=== PATIENT | male | born 1970 | race Caucasian/White ===

== ENCOUNTER 2018-05-14 11:06 | Emergency (ER) | payer OTHER ==
[~2018-05-14] VITALS: Ht 177.8 cm; Wt 99.8 kg
[2018-05-14 12:00] VITALS: BP 125/82
--- NOTE | 2018-05-14 12:21 | PHYS DOC ---
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 He had work boots on. Review of Systems Review of Systems Constitutional: Denies fever or chills [] Musculoskeletal: Denies back pain or joint pain [] Integument: Left lateral foot laceration Neurologic: Denies headache, focal weakness or sensory changes [] All other systems were reviewed and found to be within normal limits, except as documented in this note. Current Medications Current Medications Current Medications Medications (Trade) Dose Ordered Sig/Shivani Start Time Stop Time Status Last Admin Dose Admin Diphtheria/ Tetanus/Acell Pertussis (Boostrix) 0.5 ml ONCE ONCE 05/14/18 13:00 05/14/18 13:01 DC 05/14/18 12:59 0.5 ML Lidocaine/ Epinephrine (Let Topical) 3 ml 1X ONCE 05/14/18 13:00 05/14/18 13:01 DC 05/14/18 12:56 3 ML Lidocaine/Sodium Bicarbonate (Buffered Lidocaine 1%) 3 ml 1X ONCE 05/14/18 13:00 05/14/18 13:01 DC 05/14/18 12:57 3 ML Allergies Allergies Allergies Coded Allergies Type Severity Reaction Last Updated Verified No Known Drug Allergies 05/14/18 No Physical Exam Physical Exam Constitutional: Well developed, well nourished, no acute distress, non-toxic appearance. [] Skin: Left lateral foot along the distal fifth metatarsal with a laceration approximately 3 cm long, there is no obvious tendon involvement, patient able to flex and extend the left toes. +2 left pedal pulse. Cap refill less than 2 seconds the left foot. Back: No tenderness, no CVA tenderness. [] Extremities: No tenderness, no cyanosis, no clubbing, ROM intact, no edema. [] Neurologic: Alert and oriented X 3, normal motor function, normal sensory function, no focal deficits noted. [] Psychologic: Affect normal, judgement normal, mood normal. [] Current Patient Data Vital Signs Vital Signs Date Time Temp Pulse Resp B/P (MAP) Pulse Ox O2 Delivery O2 Flow Rate FiO2 05/14/18 12:00 98.4 79 18 125/82 (96) 98 Room Air 98.4 EKG EKG [] Radiology/Procedures Radiology/Procedures []PROCEDURE: FOOT LEFT 3V Three-view left foot dated 05/14/2018. No comparison available. CLINICAL INDICATION: Laceration. FINDINGS: 3 views left foot show normal bony alignment. No displaced fracture. No acute osseous or articular abnormality. Soft tissues defect laterally. No radiopaque foreign body. IMPRESSION: Soft tissue laceration with no evidence of underlying bony abnormality or radiopaque foreign body. Electronically signed by: Partick Mock MD (05/14/2018 12:44 PM) [id number] DICTATED and SIGNED BY: PATRICK MOCK MD DATE: 05/14/18 1243 Laceration/Wound Repair Wound Location: Left lateral foot Wound's Depth, Shape: Vertical Wound Length (cm): Approximately 3 cm Wound Explored: clean Irrigated w/ Saline (ccs): 50 Betadine Prep?: Yes Anesthesia: Let solution then 2 ml buffered lidocaine later Wound Repaired With: Ethilon Suture Size/Type: 3.0 Number of Sutures: 7 interrupted sutures Progress :[] Course & Med Decision Making Course & Med Decision Making Pertinent Labs and Imaging studies reviewed. (See chart for details) Patient has left lateral foot laceration, he accidentally cut himself with a concrete saw. Left foot x-rays interpreted by radiologist are negative for any acute findings. Patient's laceration was closed by me as noted in procedures. Wound care instructions and return precautions provided. Tetanus updated. Staff Physician Addendum: I was working in the ER during the course of this patient's visit. I was available for consultation as needed, but I was not directly involved in the care of this patient. Jil Disclaimer Dragemely Disclaimer This electronic medical record was generated, in whole or in part, using a voice recognition dictation system. Departure Departure Impression: Primary Impression: Laceration of foot Disposition: 01 HOME, SELF-CARE Condition: STABLE Referrals: UNKNOWN PCP NAME (PCP) follow up with your doctor in 7-10 days for suture removal Patient Instructions: Laceration Care, Adult Additional Instructions: Your laceration to the left foot was closed with stitches, keep the area clean and dry, you can shower. Apply Neosporin to the area twice a day. Monitor the area for signs of infection including but not limited to increased redness to the area, warmth to the area, yellow drainage from the area and return to the ED see your doctor if they occur. Complete your oral antibiotics. Scripts Ciprofloxacin Hcl (CIPRO) 500 Mg Tablet 1 TAB PO BID, #14 TAB Prov: FABIAN CAMARA APRN 05/14/18 Problem Qualifiers Primary Impression: Laceration of foot Encounter type: initial encounter Laterality: left Qualified Codes: S91.312A - Laceration without foreign body, left foot, initial encounter FABIAN CAMARA APRN May 14, 2018 12:21 APPLE DUNCAN MD May 14, 2018 15:54
--- NOTE | 2018-05-14 12:47 | RAD ---
Three-view left foot dated 05/14/2018. No comparison available. CLINICAL INDICATION: Laceration. FINDINGS: 3 views left foot show normal bony alignment. No displaced fracture. No acute osseous or articular abnormality. Soft tissues defect laterally. No radiopaque foreign body. IMPRESSION: Soft tissue laceration with no evidence of underlying bony abnormality or radiopaque foreign body. Electronically signed by: Patrick Mock MD (05/14/2018 12:44 PM) [id number]
[2018-05-14] MEDS ORDERED: LIDOCAINE WITH 8.4% SOD BICARB 3 ML DISP.SYRIN. INJ ONE (13:00)
[2018-05-14] MEDS ORDERED: LIDOCAINE/EPI/TETRACAINE TOPICAL GEL 3 ML. TP ONE (13:00)
[2018-05-14] MEDS ORDERED: DIPHTH,PERTUSS(ACELL),TET TOX 0.5 ML DISP.SYRIN. VAX IM ONE (13:00)
[2018-05-14] MEDS ORDERED: CIPR500T94 PO (13:53)
== END 2018-05-14 13:57 | disposition home or self-care (01) ==
LOC: ER 11:06
DX: S91.312A Laceration without foreign body, left foot, initial encounter (principal); Y28.8XXA Contact with other sharp object, undetermined intent, initial encounter; Y93.89 Activity, other specified; Y92.89 Other specified places as the place of occurrence of the external cause; Y99.8 Other external cause status
CPT/HCPCS: 12002; 73630; 90471; 90715; 99284-25